=== PATIENT | female | born 1975 | race American Indian/Alaskan Native ===

== ENCOUNTER 2016-07-13 05:12 | Emergency (ER) | payer OTHER ==
[2016-07-13] MEDS ORDERED: TYLENOL ONE (05:14)
[2016-07-13] MEDS ORDERED: TYLENOL PO ONE (05:18)
[2016-07-13 05:40] LABS: Basophils % (Auto) 0.6 % (0.0-1.8); Eosinophils % (Auto) 8.1 % (0.0-4.3); Hematocrit 39.9 % (30.3-42.9); Hemoglobin 12.9 gm/dl (10.1-14.3); Mean Corpuscular HGB Conc 32 % (30-34); Mean Corpuscular Hemoglobin 28 pg (28-32); Mean Corpuscular Volume 86 fl (79-97); Platelet Count 367 K/mm3 (140-440); Red Blood Count 4.63 M/mm3 (3.65-5.03); Red Cell Distribution Width 15.2 % (13.2-15.2); White Blood Count 8.5 K/mm3 (4.5-11.0)
[2016-07-13 05:59] LABS: Alanine Aminotransferase 12 units/L (7-56); Alkaline Phosphatase 87 units/L (35-129); Anion Gap 17 mmol/L; BUN/Creatinine Ratio 17.77; Bilirubin,Total 0.3 mg/dL (0.1-1.2); Blood Urea Nitrogen 16 mg/dL (7-17); Calcium 9.5 mg/dL (8.4-10.2); Carbon Dioxide 24 mmol/L (22-30); Chloride 98.4 mmol/L (98-107); Glucose 113 mg/dL (65-100); Lipase 34 units/L (13-60); Potassium 4.2 mmol/L (3.6-5.0); Sodium 135 mmol/L (137-145); Total Protein 7.9 g/dL (6.3-8.2)
[2016-07-13 08:12] LABS: Bilirubin,Urine NEG (Negative); Blood,Urine NEG (Negative); Ketones,Urine NEG (Negative); Leukocyte Esterase,Urine NEG (Negative); Mucus,Urine FEW /HPF; Nitrite,Urine NEG (Negative); Protein,Urine <15 mg/dL mg/dL (Negative); Urobilinogen,Urine < 2.0 mg/dL (<2.0); WBC,Urine < 1.0 /HPF (0.0-6.0)
[2016-07-13] MEDS ORDERED: ZOFRAN IV ONE (09:31)
[2016-07-13] MEDS ORDERED: NACL 0.9% 1000 ML 1,000 ML IV ONE (09:31)
[2016-07-13] MEDS ORDERED: MORPHINE IV ONE (09:31)
[2016-07-13 09:37] VITALS: BP 126/77
--- NOTE | 2016-07-13 09:37 | Emergency Department Report ---
HPI - General Chief Complaint: Abdominal Pain Time Seen by Provider: 07/13/16 09:18 - HPI HPI: Room 9 The patient is a 40-year-old female presenting with a chief complaint of abdominal pain. The patient states yesterday she developed epigastric abdominal pain that was sharp in nature. Patient is to nausea but denies vomiting. The patient states she developed frequent diarrhea yesterday has had approximately 10-15 episodes. Patient denies fever or recent antibiotic use. Patient denies sick contacts at home. Patient states her last meal prior to the onset over symptoms included mashed potatoes and chicken livers. The patient states other family members ate the same meal and remained asymptomatic. The patient currently gives her pain a score of 4/10 Location: Epigastric Duration: Since yesterday Quality: Sharp Severity: 4/10 Modifying factors: [see above] Context: [see above] Mode of transportation: [not driving] ED Past Medical Hx - Past Medical History Previous Medical History?: Yes Hx Hypertension: Yes Hx Headaches / Migraines: Yes Additional medical history: MIGRAINES. Hives. Obesity - Surgical History Past Surgical History?: Yes Additional Surgical History: tubal ligation - Family History Family history: no significant - Social History Smoking Status: Never Smoker Substance Use Type: None (denies illicit drug use), Alcohol (occasional) - Medications Home Medications: Home Medications Medication Instructions Recorded Confirmed Last Taken Type Propranolol HCl 60 mg PO QDAY 12/09/12 12/14/13 12/12/13 History Azithromycin [Zithromax TAB] 500 mg PO QDAY #5 tablet 03/25/14 Unknown Rx Butalb/Acetamin/Caff 50-325-40 1 tab PO Q6HR PRN #30 tab 12/13/14 Unknown Rx [Fioricet] Hydrochlorothiazide [HCTZ] 25 mg PO QDAY #30 tablet 12/13/14 Unknown Rx Ibuprofen [Motrin 600 MG tab] 600 mg PO Q8H PRN #30 tablet 12/13/14 Unknown Rx Ondansetron [Zofran Odt] 4 mg PO Q6HR #30 tab.rapdis 12/13/14 Unknown Rx diphenhydrAMINE [Benadryl CAP] 50 mg PO Q8HR PRN #9 capsule 12/31/15 Unknown Rx Cimetidine (Nf) [Tagamet (Nf)] 400 mg PO BID #6 tablet 01/22/16 Unknown Rx diphenhydrAMINE [Benadryl CAP] 50 mg PO QHS PRN #15 capsule 01/22/16 Unknown Rx Famotidine [Pepcid] 20 mg PO BID #10 tablet 03/06/16 Unknown Rx predniSONE [Deltasone] 20 mg PO QDAY #5 tab 03/06/16 Unknown Rx Diphenoxylate/Atropine [Lomotil] 1 tab PO QID PRN #20 tablet 07/13/16 Unknown Rx HYDROcodone/APAP 5-325 [[place] 1 - 2 each PO Q6HR PRN #10 tablet 07/13/16 Unknown Rx 5/325] Promethazine [Phenergan TAB] 25 mg PO Q6HR PRN #20 tab 07/13/16 Unknown Rx Promethazine [Phenergan] 25 mg PA Q6HR PRN #5 supp.rect 07/13/16 Unknown Rx ED Review of Systems ROS: Stated complaint: ABD PAIN/DIARRHEA Other details as noted in HPI Comment: All other systems reviewed and negative Constitutional: no symptoms reported Eyes: denies: eye pain, eye discharge, vision change ENT: denies: ear pain, throat pain Respiratory: denies: cough, shortness of breath, wheezing Cardiovascular: denies: chest pain, palpitations Endocrine: no symptoms reported Gastrointestinal: abdominal pain, nausea, diarrhea. denies: vomiting Genitourinary: denies: urgency, dysuria, discharge Musculoskeletal: denies: back pain, joint swelling, arthralgia Skin: denies: rash, lesions Neurological: denies: headache, weakness, paresthesias Psychiatric: denies: anxiety, depression Hematological/Lymphatic: denies: easy bleeding, easy bruising Physical Exam - Physical Exam Vital Signs: Vital Signs 07/13/16 05:22 Temperature 98.2 F Pulse Rate 71 Respiratory 18 Rate Blood Pressure 146/99 [Left] O2 Sat by Pulse 99 Oximetry Physical Exam: GENERAL: The patient is well-developed well-nourished female lying on stretcher not appearing to be in acute distress. [] HEENT: Normocephalic. Atraumatic. Extraocular motions are intact. Patient has moist mucous membranes. NECK: Supple. Trachea midline CHEST/LUNGS: Clear to auscultation. There is no respiratory distress noted. HEART/CARDIOVASCULAR: Regular. There is no tachycardia. There is no gallop rub or murmur. ABDOMEN: Abdomen is soft, nontender. Patient has normal bowel sounds. There is no abdominal distention. SKIN: There is no rash. There is no edema. There is no diaphoresis. NEURO: The patient is awake, alert, and oriented. The patient is cooperative. The patient has normal speech MUSCULOSKELETAL: There is no evidence of acute injury. ED Course Vital Signs 07/13/16 05:22 Temperature 98.2 F Pulse Rate 71 Respiratory 18 Rate Blood Pressure 146/99 [Left] O2 Sat by Pulse 99 Oximetry ED Medical Decision Making - Lab Data Result diagrams: 07/13/16 05:28 07/13/16 05:28 Laboratory Tests 07/13/16 07/13/16 07/13/16 05:28 05:28 05:28 WBC 8.5 RBC 4.63 Hgb 12.9 Hct 39.9 MCV 86 MCH 28 MCHC 32 RDW 15.2 Plt Count 367 Lymph % (Auto) 21.4 [place] % (Auto) 6.5 Eos % (Auto) 8.1 H Baso % (Auto) 0.6 Lymph # 1.8 [place] # 0.6 Eos # 0.7 H Baso # 0.1 Seg Neutrophils % 63.4 Seg Neutrophils # 5.4 Sodium 135 L Potassium 4.2 Chloride 98.4 Carbon Dioxide 24 Anion Gap 17 BUN 16 Creatinine 0.9 Estimated GFR > 60 BUN/Creatinine Ratio 17.77 Glucose 113 H Calcium 9.5 Total Bilirubin 0.3 AST 12 ALT 12 Alkaline Phosphatase 87 Total Protein 7.9 Albumin 4.0 Albumin/Globulin Ratio 1.0 Lipase 34 HCG, Qual Negative Urine Color Urine Turbidity Urine pH Ur Specific [place] Urine Protein Urine Glucose (UA) Urine Ketones Urine Blood Urine Nitrite Urine Bilirubin Urine Urobilinogen Ur Leukocyte Esterase Urine WBC (Auto) Urine RBC (Auto) Urine Mucus 07/13/16 07:31 WBC RBC Hgb Hct MCV MCH MCHC RDW Plt Count Lymph % (Auto) [place] % (Auto) Eos % (Auto) Baso % (Auto) Lymph # [place] # Eos # Baso # Seg Neutrophils % Seg Neutrophils # Sodium Potassium Chloride Carbon Dioxide Anion Gap BUN Creatinine Estimated GFR BUN/Creatinine Ratio Glucose Calcium Total Bilirubin AST ALT Alkaline Phosphatase Total Protein Albumin Albumin/Globulin Ratio Lipase HCG, Qual Urine Color Yellow Urine Turbidity Clear Urine pH 5.0 Ur Specific [place] 1.009 Urine Protein <15 mg/dl Urine Glucose (UA) Neg Urine Ketones Neg Urine Blood Neg Urine Nitrite Neg Urine Bilirubin Neg Urine Urobilinogen < 2.0 Ur Leukocyte Esterase Neg Urine WBC (Auto) < 1.0 Urine RBC (Auto) 1.0 Urine Mucus Few Laboratory Tests 07/13/16 07/13/16 07/13/16 05:28 05:28 05:28 WBC 8.5 RBC 4.63 Hgb 12.9 Hct 39.9 MCV 86 MCH 28 MCHC 32 RDW 15.2 Plt Count 367 Lymph % (Auto) 21.4 [place] % (Auto) 6.5 Eos % (Auto) 8.1 H Baso % (Auto) 0.6 Lymph # 1.8 [place] # 0.6 Eos # 0.7 H Baso # 0.1 Seg Neutrophils % 63.4 Seg Neutrophils # 5.4 Sodium 135 L Potassium 4.2 Chloride 98.4 Carbon Dioxide 24 Anion Gap 17 BUN 16 Creatinine 0.9 Estimated GFR > 60 BUN/Creatinine Ratio 17.77 Glucose 113 H Calcium 9.5 Total Bilirubin 0.3 AST 12 ALT 12 Alkaline Phosphatase 87 Total Creatine Kinase CK-MB (CK-2) CK-MB (CK-2) Rel Index Troponin T Total Protein 7.9 Albumin 4.0 Albumin/Globulin Ratio 1.0 Lipase 34 HCG, Qual Negative Urine Color Urine Turbidity Urine pH Ur Specific [place] Urine Protein Urine Glucose (UA) Urine Ketones Urine Blood Urine Nitrite Urine Bilirubin Urine Urobilinogen Ur Leukocyte Esterase Urine WBC (Auto) Urine RBC (Auto) Urine Mucus 07/13/16 07/13/16 05:28 07:31 WBC RBC Hgb Hct MCV MCH MCHC RDW Plt Count Lymph % (Auto) [place] % (Auto) Eos % (Auto) Baso % (Auto) Lymph # [place] # Eos # Baso # Seg Neutrophils % Seg Neutrophils # Sodium Potassium Chloride Carbon Dioxide Anion Gap BUN Creatinine Estimated GFR BUN/Creatinine Ratio Glucose Calcium Total Bilirubin AST ALT Alkaline Phosphatase Total Creatine Kinase 83 CK-MB (CK-2) 1.7 CK-MB (CK-2) Rel Index 2.0 Troponin T < 0.010 Total Protein Albumin Albumin/Globulin Ratio Lipase HCG, Qual Urine Color Yellow Urine Turbidity Clear Urine pH 5.0 Ur Specific [place] 1.009 Urine Protein <15 mg/dl Urine Glucose (UA) Neg Urine Ketones Neg Urine Blood Neg Urine Nitrite Neg Urine Bilirubin Neg Urine Urobilinogen < 2.0 Ur Leukocyte Esterase Neg Urine WBC (Auto) < 1.0 Urine RBC (Auto) 1.0 Urine Mucus Few - EKG Data -: EKG Interpreted by Me EKG shows normal: sinus rhythm Rate: normal - EKG Data When compared to previous EKG there are: previous EKG unavailable Interpretation: nonspecific ST-T wave reginald (T wave inversion lead 3) - Differential Diagnosis enteritis, ACS, pancreatitis, peptic ulcer disease, UTI Critical care attestation.: If time is entered above; I have spent that time in minutes in the direct care of this critically ill patient, excluding procedure time. ED Disposition Clinical Impression: Diarrhea, Acute abdominal pain Disposition: DISCHARGED TO HOME OR SELFCARE Is pt being admited?: No Does the pt Need Aspirin: No Condition: Stable Instructions: Abdominal Pain (ED) Additional Instructions: Return to the emergency department immediately should you develop worsening symptoms, fever, inability to tolerate food or liquid or any other concerns. Prescriptions: Diphenoxylate/Atropine [Lomotil] 1 tab PO QID PRN #20 tablet PRN Reason: Diarrhea HYDROcodone/APAP 5-325 [[place] 5/325] 1 - 2 each PO Q6HR PRN #10 tablet PRN Reason: Pain Promethazine [Phenergan TAB] 25 mg PO Q6HR PRN #20 tab PRN Reason: Nausea Promethazine [Phenergan] 25 mg PA Q6HR PRN #5 supp.rect PRN Reason: Vomiting Referrals: LALO MORRISON MD [Primary Care Provider] - 3-5 Days DAYLIN DODSON MD [Staff Physician] - 3-5 Days (Dr. Dodson is a digital producer. Please follow up with him for further evaluation) Time of Disposition: 10:06
[2016-07-13 09:49] LABS: Creatine Kinase MB 1.7 ng/mL (0.0-4.0)
[2016-07-13] MEDS ORDERED: MORPHINE ONE (09:49)
[2016-07-13 09:50] LABS: Creatine Kinase 83 units/L (30-135)
== END 2016-07-13 10:38 | disposition home or self-care (01) ==
LOC: ED 05:12
DX: R19.7 Diarrhea, unspecified (principal); R10.13 Epigastric pain; I10 Essential (primary) hypertension; G43.909 Migraine, unspecified, not intractable, without status migrainosus; E66.9 Obesity, unspecified; Z88.0 Allergy status to penicillin
CPT/HCPCS: 36415; 80053; 81001; 82550; 82553; 83690; 84484; 84703; 85025; 93005; 93010; 96361; 96374; 96375; 99283; J2270; J2405; J7030

== ENCOUNTER 2017-04-22 01:46 | Emergency (ER) | payer MEDICAID, OTHER ==
[2017-04-22] MEDS ORDERED: PEPCID ONE (02:19)
[2017-04-22] MEDS ORDERED: TYLENOL ONE (02:19)
[2017-04-22] MEDS ORDERED: DELTASONE ONE (02:19)
[2017-04-22] MEDS ORDERED: BENADRYL PO ONE ×2 (02:20→02:26)
[2017-04-22] MEDS ORDERED: PEPCID PO ONE (02:26)
[2017-04-22] MEDS ORDERED: TYLENOL PO ONE (02:26)
[2017-04-22] MEDS ORDERED: DELTASONE PO ONE (02:26)
[2017-04-22] MEDS ORDERED: MOTRIN PO ONE (07:36)
[2017-04-22 07:40] LABS: Basophils % (Auto) 0.1 % (0.0-1.8); Hematocrit 38.3 % (30.3-42.9); Hemoglobin 12.4 gm/dl (10.1-14.3); Lymphocytes # (Auto) 0.6 K/mm3 (1.2-5.4); Lymphocytes % (Auto) 12.6 % (13.4-35.0); Mean Corpuscular HGB Conc 32 % (30-34); Mean Corpuscular Hemoglobin 29 pg (28-32); Mean Corpuscular Volume 88 fl (79-97); Monocytes # (Auto) 0.1 K/mm3 (0.0-0.8); Monocytes % (Auto) 2.6 % (0.0-7.3); Platelet Count 212 K/mm3 (140-440); Red Blood Count 4.33 M/mm3 (3.65-5.03); Red Cell Distribution Width 15.3 % (13.2-15.2)
--- NOTE | 2017-04-22 07:45 | Emergency Department Report ---
- General Chief Complaint: Allergic Reaction Stated Complaint: ALLERGIC REACTION Time Seen by Provider: 04/22/17 07:02 Source: patient Mode of arrival: Ambulatory Limitations: No Limitations - History of Present Illness Initial Comments: This is a 41-year-old female nontoxic, well nourished in appearance, no acute signs of distress presents to the ED with c/o of sore throat, hives, body aches , productive cough, fever, chills x2 days. Patient stated she develops hives since childhood and usually gets treated with "Pepcid, Benadryl, and prednisone " in the ED. Patient denies any recent travels, long car rides, or recent hospital stays. Patient denies any calf pain or calf tenderness. Patient denies any nausea, vomiting, headache, stiff neck, abdominal pain, back pain, chest pain, shortness of breathe, numbness or tingling. Patient denies drooling or difficulty swallowing. Patient denies any facial swelling or tongue swelling or lip swelling. Patient states allergies to penicillin with past medical history of hypertension, headache and hives. MD Complaint: fever, cough, sore throat, rhinorrhea, nasal congestion -: days(s) (2) Severity: mild Severity scale (0 -10): 8 Quality: aching Consistency: constant Improves With: nothing Worsens With: nothing Associated Symptoms: fever, chills, rhinorrhea, nasal congestion, sore throat, cough, rash. denies: myalgias, diaphoresis, headache, stiff neck, chest pain, shortness of breath, abdominal pain, nausea, vomiting, diarrhea, dysuria, confusion, right sweats, weight loss, epistaxis, hoarseness, ear pain - Related Data Home Medications Medication Instructions Recorded Confirmed Last Taken Propranolol HCl 60 mg PO QDAY 12/09/12 12/14/13 12/12/13 Previous Rx's Medication Instructions Recorded Last Taken Type Azithromycin [Zithromax TAB] 500 mg PO QDAY #5 tablet 03/25/14 Unknown Rx Butalb/Acetamin/Caff 50-325-40 1 tab PO Q6HR PRN #30 tab 12/13/14 Unknown Rx [Fioricet] Hydrochlorothiazide [HCTZ] 25 mg PO QDAY #30 tablet 12/13/14 Unknown Rx Ibuprofen [Motrin 600 MG tab] 600 mg PO Q8H PRN #30 tablet 12/13/14 Unknown Rx Ondansetron [Zofran Odt] 4 mg PO Q6HR #30 tab.rapdis 12/13/14 Unknown Rx diphenhydrAMINE [Benadryl CAP] 50 mg PO Q8HR PRN #9 capsule 12/31/15 Unknown Rx Cimetidine (Nf) [Tagamet (Nf)] 400 mg PO BID #6 tablet 01/22/16 Unknown Rx diphenhydrAMINE [Benadryl CAP] 50 mg PO QHS PRN #15 capsule 01/22/16 Unknown Rx Famotidine [Pepcid] 20 mg PO BID #10 tablet 03/06/16 Unknown Rx predniSONE [Deltasone] 20 mg PO QDAY #5 tab 03/06/16 Unknown Rx Diphenoxylate/Atropine [Lomotil] 1 tab PO QID PRN #20 tablet 07/13/16 Unknown Rx HYDROcodone/APAP 5-325 [[place] 1 - 2 each PO Q6HR PRN #10 tablet 07/13/16 Unknown Rx 5/325] Promethazine [Phenergan TAB] 25 mg PO Q6HR PRN #20 tab 07/13/16 Unknown Rx Promethazine [Phenergan] 25 mg ID Q6HR PRN #5 supp.rect 07/13/16 Unknown Rx Azithromycin [Zithromax Z-GHANSHYAM] 250 mg PO DAILY #6 tablet 04/22/17 Unknown Rx Ibuprofen [Motrin] 600 mg PO Q8H PRN #30 04/22/17 Unknown Rx Oseltamivir [Tamiflu] 75 mg PO BID #14 cap 04/22/17 Unknown Rx diphenhydrAMINE [Benadryl CAP] 25 mg PO Q6HR PRN #20 capsule 04/22/17 Unknown Rx predniSONE [Deltasone] 40 mg PO QDAY #5 tab 04/22/17 Unknown Rx Allergies Allergy/AdvReac Type Severity Reaction Status Date / Time Penicillins Allergy Hives Verified 12/13/14 11:45 ED Review of Systems ROS: Stated complaint: ALLERGIC REACTION Other details as noted in HPI Constitutional: chills, fever Eyes: denies: eye pain, eye discharge, vision change ENT: throat pain. denies: ear pain Respiratory: cough. denies: shortness of breath, wheezing Cardiovascular: denies: chest pain, palpitations Endocrine: no symptoms reported Gastrointestinal: denies: abdominal pain, nausea, diarrhea Genitourinary: denies: urgency, dysuria, discharge Musculoskeletal: denies: back pain, joint swelling, arthralgia Skin: rash, pruritus. denies: lesions Neurological: denies: headache, weakness, paresthesias Psychiatric: denies: anxiety, depression Hematological/Lymphatic: denies: easy bleeding, easy bruising ED Past Medical Hx - Past Medical History Previous Medical History?: Yes Hx Hypertension: Yes Hx Headaches / Migraines: Yes Additional medical history: MIGRAINES. Hives. Obesity - Surgical History Past Surgical History?: Yes Additional Surgical History: tubal ligation - Social History Smoking Status: Never Smoker Substance Use Type: None - Medications Home Medications: Home Medications Medication Instructions Recorded Confirmed Last Taken Type Propranolol HCl 60 mg PO QDAY 12/09/12 12/14/13 12/12/13 History Azithromycin [Zithromax TAB] 500 mg PO QDAY #5 tablet 03/25/14 Unknown Rx Butalb/Acetamin/Caff 50-325-40 1 tab PO Q6HR PRN #30 tab 12/13/14 Unknown Rx [Fioricet] Hydrochlorothiazide [HCTZ] 25 mg PO QDAY #30 tablet 12/13/14 Unknown Rx Ibuprofen [Motrin 600 MG tab] 600 mg PO Q8H PRN #30 tablet 12/13/14 Unknown Rx Ondansetron [Zofran Odt] 4 mg PO Q6HR #30 tab.rapdis 12/13/14 Unknown Rx diphenhydrAMINE [Benadryl CAP] 50 mg PO Q8HR PRN #9 capsule 12/31/15 Unknown Rx Cimetidine (Nf) [Tagamet (Nf)] 400 mg PO BID #6 tablet 01/22/16 Unknown Rx diphenhydrAMINE [Benadryl CAP] 50 mg PO QHS PRN #15 capsule 01/22/16 Unknown Rx Famotidine [Pepcid] 20 mg PO BID #10 tablet 03/06/16 Unknown Rx predniSONE [Deltasone] 20 mg PO QDAY #5 tab 03/06/16 Unknown Rx Diphenoxylate/Atropine [Lomotil] 1 tab PO QID PRN #20 tablet 07/13/16 Unknown Rx HYDROcodone/APAP 5-325 [[place] 1 - 2 each PO Q6HR PRN #10 tablet 07/13/16 Unknown Rx 5/325] Promethazine [Phenergan TAB] 25 mg PO Q6HR PRN #20 tab 07/13/16 Unknown Rx Promethazine [Phenergan] 25 mg ID Q6HR PRN #5 supp.rect 07/13/16 Unknown Rx Azithromycin [Zithromax Z-GHANSHYAM] 250 mg PO DAILY #6 tablet 04/22/17 Unknown Rx Ibuprofen [Motrin] 600 mg PO Q8H PRN #30 04/22/17 Unknown Rx Oseltamivir [Tamiflu] 75 mg PO BID #14 cap 04/22/17 Unknown Rx diphenhydrAMINE [Benadryl CAP] 25 mg PO Q6HR PRN #20 capsule 04/22/17 Unknown Rx predniSONE [Deltasone] 40 mg PO QDAY #5 tab 04/22/17 Unknown Rx ED Physical Exam - General Limitations: No Limitations General appearance: alert, in no apparent distress - Head Head exam: Present: atraumatic, normocephalic, normal inspection - Eye Eye exam: Present: normal appearance, PERRL, EOMI. Absent: scleral icterus, conjunctival injection, nystagmus, periorbital swelling, periorbital tenderness Pupils: Present: normal accommodation - ENT ENT exam: Present: mucous membranes moist, TM's normal bilaterally, normal external ear exam - Expanded ENT Exam Expanded Ear exam: Present: normal external inspection Mouth exam: Present: normal external inspection, tongue normal. Absent: drooling, trismus, muffled voice, tongue elevation, laceration Teeth exam: Present: normal inspection Throat exam: Positive: tonsillar erythema, tonsillomegaly (2+), other (Uvula midline. No abscess or swelling noted. ). Negative: tonsillar exudate, R peritonsillar mass, L peritonsillar mass - Neck Neck exam: Present: normal inspection, full ROM. Absent: tenderness, meningismus, lymphadenopathy, thyromegaly - Respiratory Respiratory exam: Present: normal lung sounds bilaterally. Absent: respiratory distress, wheezes, rales, rhonchi, stridor, chest wall tenderness, accessory muscle use, decreased breath sounds, prolonged expiratory - Cardiovascular Cardiovascular Exam: Present: regular rate, normal rhythm, normal heart sounds. Absent: irregular rhythm, systolic murmur, diastolic murmur, rubs, gallop - GI/Abdominal GI/Abdominal exam: Present: soft, normal bowel sounds. Absent: distended, tenderness, guarding, rebound, rigid, diminished bowel sounds - Rectal Rectal exam: Present: deferred - Extremities Exam Extremities exam: Present: normal inspection, full ROM, normal capillary refill. Absent: tenderness, pedal edema, joint swelling, calf tenderness - Back Exam Back exam: Present: normal inspection, full ROM. Absent: tenderness, CVA tenderness (R), CVA tenderness (L), muscle spasm, paraspinal tenderness, vertebral tenderness, rash noted - Neurological Exam Neurological exam: Present: alert, oriented X3, CN II-XII intact, normal gait, reflexes normal - Psychiatric Psychiatric exam: Present: normal affect, normal mood - Skin Skin exam: Present: warm, dry, intact, normal color, rash, urticaria ED Course Vital Signs 04/22/17 04/22/17 01:53 02:02 Temperature 102.4 F H 101.6 F H Pulse Rate 110 H 115 H Respiratory 18 Rate Blood Pressure 151/99 O2 Sat by Pulse 95 95 Oximetry - Reevaluation(s) Reevaluation #1: 04/22/17 07:59 Patient is speaking in full sentences with no signs of distress noted. ED Medical Decision Making - Lab Data Result diagrams: 04/22/17 07:23 04/22/17 07:23 - Medical Decision Making This is a 41-yaer-old female that presents with tonsillitis, allergic reaction, and influenza A. Patient is stable and was examined by me. Chest x-ray has been obtained and dictated by radiologist with normal exam. Patient is notified of x -ray results with noted by the patient. Prior to my interview patient received 1 g of acetaminophen, 50 mg by mouth Benadryl, 20 mg by mouth Pepcid, and 60 mg by mouth and 20 mg by mouth prednisone which patient stated symptoms of itching is subsiding. Upon examination there is no angioedema. Influenza swab obtained and positive for A. Strep swab negative. Labs within normal limits. I will treat patient with azithromycin for tonsillitis and prednisone and Benadryl for allergic reaction and Tamiflu for influenza. Patient also received Motrin at discharge and emergency room. Vital signs are stable prior to discharge. Patient is afebrile and normal heart rate. Patient was rehydrated in the ED prior to discharge and patient tolerated well with no distress noted. Patient was instructed to increase rest, hydration. Patient was instructed Follow-up with a primary care doctor in 3-5 days or if symptoms worsen and continue return to emergency room as soon as possible. At time time of discharge, the patient does not seem toxic or ill in appearance. No acute signs of distress noted. Patient agrees to discharge treatment plan of care. No further questions noted by the patient. Patient was also instructed not to operate any machinery after discharged due to Benadryl which causes drowsiness and patient stated she will have her family member pick her up. Critical care attestation.: If time is entered above; I have spent that time in minutes in the direct care of this critically ill patient, excluding procedure time. ED Disposition Clinical Impression: Influenza A, Tonsillitis Allergic reaction Qualifiers: Encounter type: initial encounter Qualified Code(s): T78.40XA - Allergy, unspecified, initial encounter Disposition: TO HOME OR SELFCARE Is pt being admited?: No Does the pt Need Aspirin: No Condition: Stable Instructions: Ibuprofen (By mouth), Prednisone (By mouth), Diphenhydramine (By mouth), Azithromycin (By mouth), Oseltamivir (By mouth), Fever in Adults (ED) Additional Instructions: Follow-up with a primary care doctor in 3-5 days or if symptoms worsen and continue return to emergency room as soon as possible. Increased rest, hydration and take Motrin as prescribed for fever episodes. Do not operate any machinery after discharge and while you're taking Benadryl due to drowsiness. Prescriptions: Azithromycin [Zithromax Z-GHANSHYAM] 250 mg PO DAILY #6 tablet diphenhydrAMINE [Benadryl CAP] 25 mg PO Q6HR PRN #20 capsule PRN Reason: Itching Ibuprofen [Motrin] 600 mg PO Q8H PRN #30 PRN Reason: Pain Oseltamivir [Tamiflu] 75 mg PO BID #14 cap predniSONE [Deltasone] 40 mg PO QDAY #5 tab Referrals: RENATO PANIAGUA [Other] - 3-5 Days PRIMARY CARE, [Referring] - 3-5 Days [facility] [place] 2] [Outside] - 3-5 Days Forms: Work/School Release Form(ED)
[2017-04-22 08:00] LABS: BUN/Creatinine Ratio 14; Blood Urea Nitrogen 11 mg/dL (7-17); Calcium 8.8 mg/dL (8.4-10.2); Hemolysis Index 13
--- NOTE | 2017-04-22 08:05 | XRay Report ---
FINAL REPORT PROCEDURE: XR CHEST ROUTINE 2V TECHNIQUE: Frontal and lateral views of the chest are submitted. HISTORY: cough COMPARISON: None FINDINGS: The trachea is midline. The heart is normal in size. The lungs are clear. There is no evident pneumothorax or pleural fluid. The thoracic cage is intact. IMPRESSION: No radiographically evident acute cardiopulmonary disease
[2017-04-22 08:27] VITALS: BP 142/92
== END 2017-04-22 08:39 | disposition home or self-care (01) ==
LOC: ED 01:46
DX: J11.1 Influenza due to unidentified influenza virus with other respiratory manifestations (principal); J03.90 Acute tonsillitis, unspecified; T78.40XA Allergy, unspecified, initial encounter; I10 Essential (primary) hypertension; G43.909 Migraine, unspecified, not intractable, without status migrainosus; Z88.0 Allergy status to penicillin; X58.XXXA Exposure to other specified factors, initial encounter
CPT/HCPCS: 36415; 71046; 80048; 82140; 82550; 84703; 85025; 87116; 87400; 87430; 99284; J7512

== ENCOUNTER 2018-10-19 11:28 | Emergency (ER) | payer OTHER ==
[2018-10-19 11:57] VITALS: BP 132/79
--- NOTE | 2018-10-19 12:03 | Event Note ---
ED Screening Note Date of service: 10/19/18 Time: 11:57 ED Screening Note: 43 y/o female comes in for allergic reaction that started this morning. She has had this happen before. This initial assessment/diagnostic orders/clinical plan/treatment(s) is/are subject to change based on patients health status, clinical progression and re- assessment by fellow clinical providers in the ED. Further treatment and workup at subsequent clinical providers discretion. Patient/guardian urged not to elope from the ED as their condition may be serious if not clinically assessed and managed. Initial orders include:
--- NOTE | 2018-10-19 12:59 | Emergency Department Report ---
ED Allergic Reaction HPI - General Chief complaint: Allergic Reaction Stated complaint: RT SIDE NECK AND FACE BREAKOUT Time Seen by Provider: 10/19/18 12:51 Source: patient Mode of arrival: Ambulatory Limitations: No Limitations - History of Present Illness MD Complaint: allergic reaction, hives, facial swelling -: This morning Exposure: unknown Symptoms: rash, itching, facial swelling. denies: lip swelling, difficulty swallowing, difficulty breathing, orolingual swelling, hoarseness, syncopy, dizziness, nausea, vomiting Severity: moderate Treatment Prior to Arrival: none Previous Allergy History: none - Related Data Home Medications Medication Instructions Recorded Confirmed Last Taken Propranolol HCl 60 mg PO QDAY 12/09/12 08/14/18 12/12/13 amLODIPine [Norvasc] 10 mg PO DAILY 08/14/18 08/14/18 Unknown Allergies Allergy/AdvReac Type Severity Reaction Status Date / Time Penicillins Allergy Hives Verified 10/19/18 11:39 ED Review of Systems ROS: Stated complaint: RT SIDE NECK AND FACE BREAKOUT Other details as noted in HPI Comment: All other systems reviewed and negative Constitutional: denies: chills, fever Respiratory: denies: cough, shortness of breath, SOB with exertion Cardiovascular: denies: chest pain Gastrointestinal: denies: abdominal pain, nausea Skin: rash Neurological: denies: headache, weakness ED Past Medical Hx - Past Medical History Previous Medical History?: Yes Hx Hypertension: Yes Hx Arthritis: Yes Hx Headaches / Migraines: Yes (Migraines) Additional medical history: MIGRAINES. Hives. Obesity - Surgical History Past Surgical History?: Yes Additional Surgical History: tubal ligation - Social History Smoking Status: Never Smoker Substance Use Type: None - Medications Home Medications: Home Medications Medication Instructions Recorded Confirmed Last Taken Type Propranolol HCl 60 mg PO QDAY 12/09/12 08/14/18 12/12/13 History amLODIPine [Norvasc] 10 mg PO DAILY 08/14/18 08/14/18 Unknown History ED Physical Exam - General Limitations: No Limitations General appearance: alert, in no apparent distress - Head Head exam: Present: atraumatic, normocephalic - Eye Eye exam: Present: normal appearance, PERRL - ENT ENT exam: Present: normal exam, normal orophraynx, mucous membranes moist - Neck Neck exam: Present: normal inspection, full ROM. Absent: tenderness, meningi smus, lymphadenopathy, thyromegaly - Respiratory Respiratory exam: Present: normal lung sounds bilaterally - Cardiovascular Cardiovascular Exam: Present: regular rate, normal rhythm, normal heart sounds - GI/Abdominal GI/Abdominal exam: Present: soft. Absent: distended, tenderness, guarding - Extremities Exam Extremities exam: Present: normal inspection - Back Exam Back exam: Present: normal inspection - Neurological Exam Neurological exam: Present: alert, oriented X3 - Skin Skin exam: Present: rash, erythema ED Course Vital Signs 10/19/18 11:55 Temperature 98.2 F Pulse Rate 59 L Respiratory 16 Rate Blood Pressure 132/79 O2 Sat by Pulse 100 Oximetry Critical care attestation.: If time is entered above; I have spent that time in minutes in the direct care of this critically ill patient, excluding procedure time. ED Disposition Clinical Impression: Allergic reaction Disposition: DC-01 TO HOME OR SELFCARE Is pt being admited?: No Condition: Stable Instructions: Urticaria (ED) Referrals: [facility] [Provider Group] - 3-5 Days
== END 2018-10-19 14:13 | disposition home or self-care (01) ==
LOC: ED 11:28
DX: T78.40XA Allergy, unspecified, initial encounter (principal); I10 Essential (primary) hypertension; M19.90 Unspecified osteoarthritis, unspecified site; G43.909 Migraine, unspecified, not intractable, without status migrainosus; Z98.51 Tubal ligation status; Z88.0 Allergy status to penicillin; X58.XXXA Exposure to other specified factors, initial encounter
CPT/HCPCS: 99282